=== PATIENT | male | born 1960 | race Caucasian/White ===

== ENCOUNTER 2022-05-07 05:30 | Day surgery (SDC) | payer OTHER ==
[~2022-05-07] VITALS: Ht 180.3 cm; Wt 112.9 kg
[2022-05-07] MEDS ORDERED: SIMETHICONE 40 MG/0.6 ML ML ONE (05:45)
[2022-05-07] MEDS ORDERED: MEPERIDINE 100 MG INJ. 100 MG/ML VIAL ONE ×2 (05:45→08:15)
[2022-05-07] MEDS ORDERED: MIDAZOLAM HCL 5 MG/5 ML VIAL ONE ×2 (05:45→08:15)
[2022-05-07 13:00] VITALS: BP_SYST 148
== END 2022-05-07 09:26 | disposition home or self-care (01) ==
LOC: SDS 05:30 → SMU 05:30 → SDS 09:26
PROVIDERS: ATTEND Internal Medicine Gastroenterology
DX: Z12.11 Encounter for screening for malignant neoplasm of colon (principal); D12.2 Benign neoplasm of ascending colon; D12.4 Benign neoplasm of descending colon; K29.50 Unspecified chronic gastritis without bleeding; K64.9 Unspecified hemorrhoids; K21.00 Gastro-esophageal reflux disease with esophagitis, without bleeding; I10 Essential (primary) hypertension; E11.9 Type 2 diabetes mellitus without complications; Z20.822 Contact with and (suspected) exposure to COVID-19; Z98.84 Bariatric surgery status; Z96.649 Presence of unspecified artificial hip joint; Z68.41 Body mass index [BMI] 40.0-44.9, adult; Z79.899 Other long term (current) drug therapy
CPT/HCPCS: 36415 ×2; 45385; 43239; 87426; 82962; 88305; 88312; 88313; 99152; 99153; U0003; G0378; J2250; J2175